=== PATIENT | female | born 1955 | race Caucasian/White ===

== ENCOUNTER 2018-03-06 12:11 | Day surgery (SDC) | payer OTHER, MEDICAID ==
[2018-03-06] MEDS ORDERED: PROPOFOL 20 ML (13:56)
[2018-03-06] MEDS ORDERED: FENTAnyl 50 MCG/ML VIAL (13:56)
[2018-03-06] MEDS ORDERED: MIDAZOLAM 1 MG/ML 2 ML INJ (13:56)
== END 2018-03-06 16:15 | disposition home or self-care (01) ==
LOC: GIL 12:11
DX: Z12.11 Encounter for screening for malignant neoplasm of colon (principal); K29.30 Chronic superficial gastritis without bleeding; E11.9 Type 2 diabetes mellitus without complications; J45.909 Unspecified asthma, uncomplicated; R19.7 Diarrhea, unspecified
CPT/HCPCS: 43239; 88305; 88312; 88313

== ENCOUNTER 2018-07-16 14:05 | Emergency (ER) | payer OTHER ==
[2018-07-16 19:24] LABS: URINE BLOOD (Dip) POC 2+ (NEGATIVE); URINE KETONES (Dip) POC 1+ (NEGATIVE); URINE LEUKOCYTE EST (Dip) POC Negative (NEGATIVE); URINE NITRITE (Dip) POC Negative (NEGATIVE); URINE TOTAL PROTEIN POC Negative (NEGATIVE)
[2018-07-16 19:24] LABS: URINE PH (Dip) POC 5.5 (5.0-8.5)
[2018-07-16] MEDS: PHENAZOPYRIDINE 100 MG TAB PO (19:35)
[2018-07-16] MEDS: NITROFURANTOIN (SR) 100 MG CAP PO (19:35)
== END 2018-07-16 19:46 | disposition home or self-care (01) ==
LOC: E/R 14:05
DX: N30.91 Cystitis, unspecified with hematuria (principal); E11.9 Type 2 diabetes mellitus without complications; Z79.84 Long term (current) use of oral hypoglycemic drugs
CPT/HCPCS: 81003; 99283